=== PATIENT | male | born 1985 | race Two or more races ===

== ENCOUNTER 2022-06-17 19:24 | Emergency (ER) | payer MEDICAID, OTHER ==
[~2022-06-17] VITALS: Ht 172.7 cm; Wt 68.0 kg
[2022-06-17] MEDS ORDERED: ONDANSETRON 4 MG TAB.RAPDIS ONE (20:20)
[2022-06-17] MEDS ORDERED: CLONIDINE HCL 0.1MG/24H PTWK 1 EA PATCH TD SCH (20:30)
[2022-06-17] MEDS ORDERED: ONDANSETRON 4 MG TAB.RAPDIS PO ONE (20:30)
[2022-06-17 20:50] VITALS: BP 129/70
== END 2022-06-17 20:55 ==
LOC: ER 19:26
DX: F11.10 Opioid abuse, uncomplicated (principal); R11.0 Nausea; Z60.2 Problems related to living alone
CPT/HCPCS: 99283; Q0162